=== PATIENT | female | born 1985 | race Asian ===

== ENCOUNTER 2018-10-17 05:21 | Inpatient (IN) | payer MEDICAID ==
[2018-10-17] MEDS ORDERED: MISOPROSTOL 200 MCG TAB PR ×2 (06:00→09:30)
[2018-10-17] MEDS ORDERED: OXYTOCIN 30 UNITS/LR 500 ML IV ×2 (06:00→09:30)
[2018-10-17] MEDS ORDERED: CARBOPROST 250 MCG INJ IM ×2 (06:00→09:30)
[2018-10-17] MEDS: LACTATED RINGER'S 1,000 ML IV ×3 (06:21→07:33)
[2018-10-17 06:25] LABS: ADD MAN DIFF? NO
[2018-10-17 06:34] LABS: BASOPHILS % 0.1 % (0.0-2.0); EOSINOPHILS # 0.1 10^3/ul (0.0-0.5); EOSINOPHILS % 1.1 % (0.0-7.0); HEMATOCRIT 39.2 % (37.0-47.0); HEMOGLOBIN 12.9 g/dl (12.0-16.0); LYMPHOCYTES # 1.7 10^3/ul (0.8-2.9); LYMPHOCYTES % 23.2 % (15.0-51.0); MEAN CORPUSCULAR HEMOGLOBIN 30.4 pg (29.0-33.0); MEAN CORPUSCULAR HGB CONC 32.9 g/dl (32.0-37.0); MEAN CORPUSCULAR VOLUME 92.5 fl (82.0-101.0); MONOCYTE # 0.7 10^3/ul (0.3-0.9); MONOCYTES % 10.2 % (0.0-11.0); NEUTROPHIL # 4.7 10^3/ul (1.6-7.5); NEUTROPHILS % 64.9 % (39.0-77.0); PLATELET COUNT 142 10^3/UL (140-415); RED BLOOD COUNT 4.24 10^6/ul (4.20-5.40); RED CELL DISTRIBUTION WIDTH 13.3 % (11.5-14.5)
[2018-10-17 06:34] LABS: WHITE BLOOD COUNT 7.3 10^3/ul (4.8-10.8)
[2018-10-17 06:55] LABS: INR 0.88; PT RATIO 0.9
[2018-10-17 06:56] LABS: PARTIAL THROMBOPLASTIN TIME 29.5 Sec (23.0-35.0)
[2018-10-17 07:21] LABS: HEPATITIS B SURFACE ANTIGEN NEGATIVE (NEGATIVE)
[2018-10-17] MEDS ORDERED: NALBUPHINE HCL (10 MG/1 ML) INJ IV (08:00)
[2018-10-17] MEDS ORDERED: DIPHENHYDRAMINE 50 MG INJ IV (08:00)
[2018-10-17] MEDS ORDERED: ONDANSETRON 4 MG INJ IV (08:00)
[2018-10-17] MEDS ORDERED: MIDAZOLAM 1 MG/ML 2 ML INJ IV (08:00)
[2018-10-17] MEDS ORDERED: NALOXONE (0.4 MG/ML) INJ IV (08:00)
[2018-10-17] MEDS ORDERED: ZOLPIDEM 5 MG TAB PO (08:00)
[2018-10-17] MEDS ORDERED: HYDROmorphONE 0.5 MG/0.5 ML SYG IV ×2 (08:00)
[2018-10-17] MEDS ORDERED: MEPERIDINE 25 MG INJ IV (08:00)
[2018-10-17] MEDS ORDERED: morphine SULFATE/PF (10 MG/10 ML) INJ (08:13)
[2018-10-17] MEDS ORDERED: METOCLOPRAMIDE 10 MG INJ (08:13)
[2018-10-17] MEDS ORDERED: ONDANSETRON 4 MG INJ (08:25)
[2018-10-17] MEDS: CEFAZOLIN 2 GM/50 ML (PMX) 50 ML IVPB ×2 (08:51→16:39)
[2018-10-17] MEDS ORDERED: OXYTOCIN 10 UNIT INJ (08:53)
[2018-10-17] MEDS ORDERED: MIDAZOLAM 1 MG/ML 2 ML INJ (08:54)
[2018-10-17] MEDS: METHYLERGONOVINE 0.2 MG INJ IM (09:09)
[2018-10-17] MEDS ORDERED: NACL 0.9% 3 ML SYG IV (09:30)
[2018-10-17] MEDS ORDERED: CEFAZOLIN 2 GM/50 ML (PMX) 50 ML IVPB (09:30)
[2018-10-17] MEDS ORDERED: METHYLERGONOVINE 0.2 MG INJ IM (09:30)
[2018-10-17] MEDS: DIPHENHYDRAMINE 50 MG INJ IV (09:40)
[2018-10-17] MEDS: KETOROLAC 30 MG INJ IV (10:41)
[2018-10-17] MEDS: OXYTOCIN 30 UNITS/LR 500 ML IV (13:43)
[2018-10-17 16:37] LABS: RAPID PLASMA REAGIN NONREACTIVE (NR)
[2018-10-18] MEDS: CEFAZOLIN 2 GM/50 ML (PMX) 50 ML IVPB ×2 (00:04→08:15)
[2018-10-18] MEDS: LACTATED RINGER'S 1,000 ML IV (01:16)
[2018-10-18] MEDS: KETOROLAC 30 MG INJ IV (04:15)
[2018-10-18 06:47] LABS: ADD MAN DIFF? NO
[2018-10-18 06:51] LABS: BASOPHILS % 0.3 % (0.0-2.0); EOSINOPHILS # 0.1 10^3/ul (0.0-0.5); HEMATOCRIT 35.4 % (37.0-47.0); HEMOGLOBIN 11.5 g/dl (12.0-16.0); LYMPHOCYTES # 1.6 10^3/ul (0.8-2.9); LYMPHOCYTES % 14.2 % (15.0-51.0); MEAN CORPUSCULAR HEMOGLOBIN 30.4 pg (29.0-33.0); MEAN CORPUSCULAR HGB CONC 32.5 g/dl (32.0-37.0); MEAN CORPUSCULAR VOLUME 93.7 fl (82.0-101.0); MEAN PLATELET VOLUME 11.6 fl (7.4-10.4); MONOCYTE # 0.9 10^3/ul (0.3-0.9); MONOCYTES % 8.1 % (0.0-11.0); NEUTROPHIL # 8.3 10^3/ul (1.6-7.5); NEUTROPHILS % 75.9 % (39.0-77.0); PLATELET COUNT 138 10^3/UL (140-415); RED BLOOD COUNT 3.78 10^6/ul (4.20-5.40); RED CELL DISTRIBUTION WIDTH 13.1 % (11.5-14.5)
[2018-10-18] MEDS: LANOLIN HPA 1 PKT TOP (09:59)
[2018-10-18] MEDS: OXYCODONE/ACETAMINOPHEN (5/325) TAB PO ×2 (11:35→15:19)
[2018-10-18] MEDS: IBUPROFEN 800 MG TAB PO ×2 (13:58→22:09)
[2018-10-19] MEDS: OXYCODONE/ACETAMINOPHEN (5/325) TAB PO ×4 (01:08→22:44)
[2018-10-19] MEDS: IBUPROFEN 800 MG TAB PO ×3 (05:34→22:02)
[2018-10-20] MEDS: IBUPROFEN 800 MG TAB PO (05:27)
[2018-10-20] MEDS: BISACODYL 10 MG SUPP PR (06:42)
[2018-10-20] MEDS: LANOLIN HPA 1 PKT TOP (06:43)
[2018-10-20] MEDS: OXYCODONE/ACETAMINOPHEN (5/325) TAB PO (09:34)
[2018-10-20] MEDS: DIPHTH/TET/ACEL PERTUSS (ADULT) 0.5 ML VIAL IM* (11:29)
== END 2018-10-20 12:50 | disposition home or self-care (01) | DRG 788 ==
LOC: L-D 05:21 → PP1 12:50
PROC: 10D00Z1 Extraction of Products of Conception, Low, Open Approach (ICD-10-PCS; principal; 2018-10-17 07:30)
DX: O34.211 Maternal care for low transverse scar from previous cesarean delivery (principal); Z3A.39 39 weeks gestation of pregnancy; Z37.0 Single live birth; Z23 Encounter for immunization
CPT/HCPCS: 85025; 85610; 85730; 86592; 86850; 86900; 86901; 87340; 90715; 99464

== ENCOUNTER 2018-11-13 12:16 | Emergency (ER) | payer MEDICAID | END 2018-11-13 12:49 | disposition home or self-care (01) | LOC: E/R 12:49 | DX: Z48.01 Encounter for change or removal of surgical wound dressing (principal) | CPT/HCPCS: 99281; Z7502 ==